=== PATIENT | female | born 1950 | race Caucasian/White ===

== ENCOUNTER 2025-06-09 07:03 | Day surgery (SDC) | payer MEDICARE, BC ==
[2025-06-09] MEDS: Lactated Ringers 1,000 ML IV SCH (07:24)
[2025-06-09] MEDS ORDERED: fentaNYL 100 MCG/2 ML SDV ONE (07:52)
[2025-06-09] MEDS ORDERED: Propofol 200 MG/20 ML SDV ONE ×2 (07:52→08:50)
[2025-06-09] MEDS ORDERED: Ondansetron 4 MG/2 ML SDV ONE (08:39)
== END 2025-06-09 09:47 | disposition home or self-care (01) ==
LOC: VM.SDS 07:03
PROVIDERS: ATTEND Student in an Organized Health Care Education/Training Program
DX: Z12.11 Encounter for screening for malignant neoplasm of colon (principal); D12.0 Benign neoplasm of cecum; R19.5 Other fecal abnormalities; K21.9 Gastro-esophageal reflux disease without esophagitis; E78.5 Hyperlipidemia, unspecified; Z88.8 Allergy status to other drugs, medicaments and biological substances; Z79.899 Other long term (current) drug therapy
CPT/HCPCS: 00811; 45381; 45385; 88305; 99100; J2405; J2704; J7120; J3010